=== PATIENT | male | born 1965 ===

== ENCOUNTER 2017-11-25 13:56 | Emergency (ER) | payer SELFPAY ==
[2017-11-25 14:15] VITALS: BP 148/76; PULSE 64; RESP 18; TEMP 99; O2SAT 99
--- NOTE | 2017-11-25 16:04 | C.PDOC ---
History Of Present Illness 52 y/o male presents to the ER complaining of itchy rash to the bilateral hands which has been present for 2 days. Patient notes that he had a similar episode 16 years ago and he was given a shot with resolution. Patient reports he had sexual intercourse 8 months ago. Patient denies any fever, joint pain, rash on feet or anywhere else, mouth sores, genital pain and other medical complaints. Of note, patient is an alcoholic. Time Seen by Provider: 11/25/17 14:44 Chief Complaint (Nursing): Abnormal Skin Integrity History Per: Patient History/Exam Limitations: no limitations Onset/Duration Of Symptoms: Days Current Symptoms Are (Timing): Still Present Severity: Moderate Past Medical History Reviewed: Historical Data, Nursing Documentation, Vital Signs Vital Signs: Last Vital Signs Temp 99 F 11/25/17 14:14 Pulse 64 11/25/17 14:14 Resp 18 11/25/17 14:14 BP 148/76 11/25/17 14:14 Pulse Ox 99 11/29/17 23:12 - Medical History PMH: No Chronic Diseases Surgical History: No Surg Hx Family History: States: No Known Family Hx - Social History Hx Alcohol Use: No Hx Substance Use: No - Immunization History Hx Tetanus Toxoid Vaccination: No Hx Influenza Vaccination: No Hx Pneumococcal Vaccination: No Review Of Systems Except As Marked, All Systems Reviewed And Found Negative. Constitutional: Negative for: Fever, Chills Skin: Positive for: Rash (bilateral hands) Physical Exam - Physical Exam Appears: Non-toxic, No Acute Distress Skin: Warm, Other (erythematous maculopapules to bilateral palms and dorsal aspect of hands, no vesicles, no ulcers) Head: Atraumatic, Normacephalic Eye(s): bilateral: Normal Inspection, PERRL, EOMI Ear(s): Bilateral: Normal Nose: Normal Oral Mucosa: Moist Tongue: Normal Appearing, No Swelling, No Lesions Lips: Other (1 cm ulceration to the right lower lip inner mucosa) Gingiva: Normal Appearing, No Erythema Throat: Normal, No Erythema, No Exudate, No Drooling Neck: Normal, Normal ROM, Supple Lymphatic: Normal Exam Chest: Symmetrical Cardiovascular: Rhythm Regular Respiratory: Normal Breath Sounds, No Accessory Muscle Use Gastrointestinal/Abdominal: Normal Exam, Soft, No Tenderness Extremity: Normal ROM, No Tenderness, No Swelling Neurological/Psych: Oriented x3, Normal Speech, Normal Cognition, Normal Motor, Normal Sensation ED Course And Treatment O2 Sat by Pulse Oximetry: 99 (RA) Pulse Ox Interpretation: Normal Progress Note: Case discussed and pt evaluated by Dr Artis, miller tierney plan and discharge. Instructed to follow up with dermatology in 1-2 days or return to ER if symptoms persist or wrosen. Disposition - Disposition Referrals: [facility] [Outside] Disposition: HOME/ ROUTINE Disposition Time: 14:00 Condition: STABLE Additional Instructions: Follow up with your primary medical doctor or clinic in 2-5 days for further evaluation. Take medications as prescribed. Return to the emergency department at any time if symptoms persist or worsen. Prescriptions: DiphenhydrAMINE [Benadryl] 25 mg PO Q6 #20 cap Hydrocortisone 1% Cream [Cortizone 1% Cream] 1 appl TP TID #1 tube Instructions: Acute Rash (ED) Forms: [employer] (Lao) - Clinical Impression Clinical Impression: Rash - PA / HEAD TRIMMER / Resident Statement MD/DO has reviewed & agrees with the documentation as recorded. - Scribe Statement The provider has reviewed the documentation as recorded by the Macy Rollins Provider Attestation All medical record entries made by the Macy were at my direction and personally dictated by me. I have reviewed the chart and agree that the record accurately reflects my personal performance of the history, physical exam, medical decision making, and the department course for this patient. I have also personally directed, reviewed, and agree with the discharge instructions and disposition.
== END 2017-11-25 16:28 | disposition home or self-care (01) ==
LOC: C.ER 13:56
DX: R21 Rash and other nonspecific skin eruption (principal)